=== PATIENT | female | born 1990 | race Caucasian/White ===

== ENCOUNTER 2019-08-02 03:58 | Observation (INO) ==
[2019-08-02] MEDS ORDERED: AZITHROMYCIN 250 MG TABLET PO ONE (04:52)
[2019-08-02] MEDS ORDERED: AMPICILLIN SODIUM 2,000 MG in NORMAL SALINE 100 ML IV ONE (04:54)
[2019-08-02] MEDS ORDERED: RINGER'S SOLUTION,LACTATED 1,000 ML IV ONE (04:55)
[2019-08-02] MEDS ORDERED: BETAMETHASONE ACETATE,SOD PHOS 6 MG/ML VIAL IM ONE (04:57)
[2019-08-02 05:02] VITALS: BP 134/83
--- NOTE | 2019-08-02 05:20 | HP ---
Chief Complaint - Chief Complaint Date of Service: 08/02/19 Time of Service: 05:09 Chief Complaint: "my water broke" History of Present Illness: 29 year old at 34w 5d who presented to labor and delivery with ruptured membranes. She had ruptured membranes at 0230. She layed down for 30 minutes then got up and had a big gush of fluid. She reports irregular contractions and is only feeling one ctx so far. She denies vb or lof. Fetus is active. Medical History (Last Reviewed 08/02/19 @ 05:11 by Aarti Ham MD) In vitro fertilization Onset Date: ~12/21/18 Abnormal Pap smear of cervix Onset Date: 08/15/08 Anxiety Onset Date: 01/10/14 Fatigue Onset Date: 06/14/15 Fibromyalgia Onset Date: 08/24/15 Intermenstrual bleeding Onset Date: 06/14/15 Migraine Onset Date: 08/24/15 Pityriasis rosea Onset Date: 02/01/16 Surgical History: Surgical History (Last Reviewed 08/02/19 @ 05:11 by Aarti Ham MD) H/O wisdom tooth extraction Onset Date: ~2014 H/O breast augmentation Onset Date: ~2012 [place] teeth extracted Onset Date: ~2014 Family History: Family History (Last Reviewed 08/02/19 @ 05:11 by Aarti Ham MD) Mother Alive and well Father Alive and well Grandmother , maternal Lymphoma Grandmother , paternal Diabetes Grandfather Heart disease paternal Lymphoma Social History: (Last Reviewed 08/02/19 @ 05:11 by Aarti Ham MD) Social History: Marital status: Single current occupational status: employed 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 Highest education level completed: Bachelor's degree Service: No Tobacco: Smoking Status: Never smoker Alcohol: alcohol intake: former Substance Use: substance use type: does not use Dietary Habits: caffeine: No Exercise: Physical activity type: none Review Of Systems (GEN) - Review of Systems Generalized/Overall Review: Present: No Symptoms Reported EENTM: Present: No Symptoms Reported Respiratory: Present: No Symptoms Reported Cardiac: Present: No Symptoms Reported Abdominal: Present: No Symptoms Reported Genitourinary: Present: Other - loss of fluid Musculoskeletal: Present: No Symptoms Reported Neurological: Present: No Symptoms Reported Skin: Present: No Symptoms Reported Endocrine: Present: No Symptoms Reported Allergies/Adverse Reactions: Allergies Allergy/AdvReac Type Severity Reaction Status Date / Time Sulfa (Sulfonamide Allergy Severe nausea Verified 06/25/19 14:55 Antibiotics) topiramate [From Topamax] Allergy Severe depression, Verified 06/25/19 14:55 blurred vision venlafaxine Allergy Severe jittery Verified 06/25/19 14:55 Home Medications: HOME MEDICATIONS comb no.42-folic acid 1.4 mg chew tablet,IR - DR,biphase 1 tab PO DAILY 01/01/18 [Last Taken Unknown] doxylamine succinate 25 mg tablet 12.5 mg PO HS PRN tab 02/03/19 [Last Taken Unknown] esomeprazole magnesium 40 mg capsule,delayed release 40 mg PO DAILY #30 cap 05/07/19 [Last Taken Unknown] fluconazole 150 mg tablet 150 mg PO Q3D 0 Days #2 tab 06/25/19 [Last Taken Unknown] Famotidine [Pepcid AC] 20 mg PO DAILY 08/02/19 [Last Taken Unknown] Exam - Exam Vital Signs: Vital Signs - Last Taken Temp 36.6 C 08/02/19 04:48 Pulse 110 H 08/02/19 04:48 Resp 18 08/02/19 04:48 BP 134/83 08/02/19 04:48 Pulse Ox 99 08/02/19 04:48 Constitutional: Present: Alert, Oriented x3, Cooperative, Well developed, Well nourished, No distress ENT Exam: Present: hearing grossly normal Eye Exam: bilateral eye: normal inspection Neck: Present: normal inspection Back Exam: Present: normal inspection, no CVA tenderness Breasts: Present: Exam deferred Respiratory: Present: lungs clear, normal breath sounds, no respiratory distress Cardiovascular/Chest: Present: regular rate, rhythm Abdomen: Present: Normal bowel sounds, soft, nontender, nondistended, no rebound tenderness /Rectal: Present: Other - grossly ruptured. 2 cm Extremity: Present: non-tender, no calf tenderness Skin Exam: Present: normal color, warm/dry, no cyanosis Lymphatic: Present: no adenopathy Neurologic: Present: alert, normal mood/affect, oriented x 3 Appearance: Present: appropriate appearance, appropriate insight, neat, no memory impairment Eye contact: Present: cooperative, good eye contact, normal speech Thoughts: Present: normal thought pattern Assessment/Plan - Narrative Narrative: 29 year old at 34w 5d PPROM: transfer to [facility] due to gestational age and known CPAM. Betamethasone given x1. Ampicillin 2 grams IV and zithromax 1 gram PO given as well. Vertex. 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
--- NOTE | 2019-08-02 05:21 | DS ---
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 She was given steroids, ampicillin and zithromax. Procedures Performed: none - Medications Medications: Active Medications Ampicillin Sodium 2,000 mg/ (Sodium Chloride) 100 mls @ 200 mls/hr IV ONCE ONE; Protocol Stop: 08/02/19 05:23 Last Admin: 08/02/19 05:06 Dose: 200 mls/hr Documented by: Discontinued Medications Azithromycin (Zithromax) 1,000 mg PO ONCE ONE; Protocol Stop: 08/02/19 04:53 Last Admin: 08/02/19 05:07 Dose: 1,000 mg Documented by: Betamethasone Acet/Betameth SodPhos (Celestone Soluspan) 12 mg IM ONCE ONE Stop: 08/02/19 04:58 Last Admin: 08/02/19 05:05 Dose: 12 mg Documented by: - Disposition Disposition: Short Term Hospital Inpatient Condition: Good Discharge Date: 08/02/19 Discharge Time: 05:21
== END 2019-08-02 06:10 | disposition short-term general hospital (02) ==
LOC: OBCLINIC 03:58 → INTOOBSV 04:50 → OB 04:50
PROVIDERS: ADMIT Obstetrics & Gynecology; ATTEND Obstetrics & Gynecology
CPT/HCPCS: 59025; 96365; 96372; G0378